=== PATIENT | female | born 1985 ===

== ENCOUNTER 2019-07-02 07:13 | Day surgery (SDC) | payer BC ==
[~2019-07-02 07:13] MED LIST: BUPIVACAINE/PF (0.5%) 5 MG/1 ML 30 ML VIAL INFILTRATI ONE; SODIUM CHLORIDE 0.9% IRR 1,000 ML BOTTLE IR ONE
--- NOTE | 2019-07-02 07:36 | Anesthesia Consultation ---
Anesthesia Consult and Med Hx Date of service: 07/02/19 - Airway Anesthetic Teeth Evaluation: Good ROM Head & Neck: Adequate Mental/Hyoid Distance: Adequate Mallampati Class: Class II Intubation Access Assessment: Good - Pulmonary Exam CTA: Yes - Cardiac Exam Cardiac Exam: RRR - Pre-Operative Health Status ASA Pre-Surgery Classification: ASA1 Proposed Anesthetic Plan: General
--- NOTE | 2019-07-02 07:37 | Anesthesia Day of Surgery ---
Anesthesia Day of Surgery - Day of Surgery Patient Examined: Yes Patient H&P Reviewed: Yes Patient is NPO: Yes
[2019-07-02] MEDS ORDERED: ONDANSETRON 4 MG/2 ML INJ IV PRN (07:38)
[2019-07-02] MEDS ORDERED: HYDROmorphone 1 MG/1 ML INJ IV PRN (07:38)
[2019-07-02] MEDS ORDERED: BACTERIOSTATIC SODIUM CHLORIDE 0.9% 30 ML VIAL INFILTRATI ONE (07:43)
[2019-07-02] MEDS ORDERED: MIDAZOLAM 2 MG/2 ML INJ IV NR (08:00)
[2019-07-02] MEDS ORDERED: LACTATED RINGERS 1,000 ML IV SCH (08:00)
[2019-07-02 08:34] VITALS: BP 124/67
[2019-07-02] MEDS ORDERED: BUPIVACAINE/PF (0.5%) 5 MG/1 ML 30 ML VIAL INFILTRATI ONE (08:47)
[2019-07-02] MEDS ORDERED: ROCURONIUM 50 MG/5 ML INJ IV ONE (08:52)
[2019-07-02] MEDS ORDERED: MIDAZOLAM 2 MG/2 ML INJ ONE (08:52)
[2019-07-02] MEDS ORDERED: fentaNYL 100 MCG/2 ML INJ ONE (08:52)
[2019-07-02] MEDS ORDERED: LIDOCAINE MPF (2%) 20 MG/1 ML VIAL 5 ML ONE (08:52)
[2019-07-02] MEDS ORDERED: PROPOFOL 200 MG/20 ML VIAL IV ONE (08:53)
== END 2019-07-02 10:03 | disposition home or self-care (01) ==
LOC: OR 07:13
PROVIDERS: ATTEND Obstetrics & Gynecology
DX: Z30.2 Encounter for sterilization (principal); Z53.8 Procedure and treatment not carried out for other reasons; Z79.899 Other long term (current) drug therapy; Z98.890 Other specified postprocedural states
CPT/HCPCS: J2250; J7120; J2704; J3010

== ENCOUNTER 2019-08-19 07:20 | Day surgery (SDC) | payer BC ==
[2019-08-19] MEDS ORDERED: GABAPENTIN 300 MG CAP PO NR (08:00)
[2019-08-19] MEDS ORDERED: LACTATED RINGERS 1,000 ML IV SCH (08:00)
[2019-08-19] MEDS ORDERED: CELECOXIB 200 MG CAP PO NR (08:00)
[2019-08-19] MEDS ORDERED: MIDAZOLAM 2 MG/2 ML INJ IV NR (08:00)
[2019-08-19] MEDS ORDERED: BUPIVACAINE/PF (0.5%) 5 MG/1 ML 30 ML VIAL INFILTRATI ONE ×3 (08:31→09:48)
[2019-08-19] MEDS ORDERED: BUPIVACAINE/PF (0.25%) 2.5 MG/ML 30 ML VIAL INFILTRATI ONE (08:32)
--- NOTE | 2019-08-19 08:39 | Anesthesia Day of Surgery ---
Anesthesia Day of Surgery - Day of Surgery Patient Examined: Yes Patient H&P Reviewed: Yes Patient is NPO: Yes
--- NOTE | 2019-08-19 08:39 | Anesthesia Consultation ---
Anesthesia Consult and Med Hx Date of service: 08/19/19 - Airway Anesthetic Teeth Evaluation: Good ROM Head & Neck: Adequate Mental/Hyoid Distance: Adequate Mallampati Class: Class I Intubation Access Assessment: Good - Pulmonary Exam CTA: Yes - Cardiac Exam Cardiac Exam: RRR - Pre-Operative Health Status ASA Pre-Surgery Classification: ASA1 Proposed Anesthetic Plan: General - Pulmonary Hx Smoking: No Hx Respiratory Symptoms: No - Cardiovascular System Hx Hypertension: No Hx Heart Attack/AMI: No - Central Nervous System CVA: No - Gastrointestinal Hx Gastroesophageal Reflux Disease: No - Endocrine Hx Renal Disease: No Hx Liver Disease: No Hx Insulin Dependent Diabetes: No Hx Non-Insulin Dependent Diabetes: No Hx Thyroid Disease: No - Other Systems Hx Obesity: Yes (BMI 36) - Additional Comments Anesthesia Medical History Comments: No hx anesthetic complications.
[2019-08-19] MEDS ORDERED: LIDOCAINE MPF (2%) 20 MG/1 ML VIAL 5 ML ONE (08:53)
[2019-08-19] MEDS ORDERED: ONDANSETRON 4 MG/2 ML INJ ONE (08:53)
[2019-08-19] MEDS ORDERED: dexAMETHasone 20 MG/5 ML VIAL ONE (08:53)
[2019-08-19] MEDS ORDERED: ROCURONIUM 50 MG/5 ML INJ IV ONE (08:53)
[2019-08-19] MEDS ORDERED: fentaNYL 100 MCG/2 ML INJ ONE ×2 (08:54→09:59)
[2019-08-19] MEDS ORDERED: PROPOFOL 200 MG/20 ML VIAL IV ONE (08:54)
[2019-08-19] MEDS ORDERED: SODIUM CHLORIDE 0.9% IRR 1,500 ML BOTTLE IR ONE (09:48)
[2019-08-19] MEDS ORDERED: GLYCOPYRROLATE 0.4 MG/2 ML INJ ONE (09:59)
[2019-08-19] MEDS ORDERED: NEOSTIGMINE 10MG/10 ML INJ MDV ONE (09:59)
[2019-08-19] MEDS: HYDROmorphone 1 MG/1 ML INJ IV PRN ×2 (10:34→10:44)
[2019-08-19] MEDS ORDERED: ACETAMINOPHEN W/CODEINE 300-30 MG TAB PO ONE (11:59)
[2019-08-19] MEDS ORDERED: ACETAMINOPHEN W/CODEINE 300-30 MG TAB ONE (12:04)
--- NOTE | 2019-08-19 14:13 | Post Anesthesia Evaluation ---
- Post Anesthesia Evaluation Patient Participated: Yes Airway Patent: Yes Stable Respiratory Function: Yes Nausea/Vomiting: No Temp > 96.8F: Yes Pain Manageable: Yes Adequeate Hydration: Yes Anesthesia Complications: No
[2019-08-19 16:07] VITALS: BP 149/85
--- NOTE | 2019-08-19 23:45 | Post Operative Note ---
Date of procedure: 08/19/19 Pre-op diagnosis: sterilization Post-op diagnosis: same Findings: Normal uterus, tubes and ovaries. Grossly normal general abd survey Procedure: Lap BTL with Filschie clips Patient was taken to the operating room and prepped and draped in usual fashion. Attention was first turned vaginally to the placement of the acorn uterine manipulator this difficulty. Single tooth tenaculum was used to stabilize the cervix. Then after the Uriarte was placed attention was turned abdominally. A 5 mm incision was made in the umbilicus. Veress needle successfully placed in the abdominal cavity and the abdomen was appropriately insufflated with CO2 gas. The Veress needle was removed and the 5 mm trocar was placed. Placement confirmed with the camera. The patient was then placed in Trendelenburg and 8 mm suprapubic incision was made about 2 cm superior to the pubic symphysis in the midline. The 8 millimeter trocar was then placed under direct visualization and was done successfully and without difficulty. Attention was then turned to the left fallopian tube where a Filshie clip was applied. It was applied successfully and without difficulty and encompassed the full width of the tube. Good hemostasis noted. Then attention was turned to the right side where the Filshie clip was applied to that tube and equal success was achieved. Full width of the tube was encompassed on that side as well. Good hemostasis noted o n that side as well. At this point the procedure was concluded. The abdomen was desufflated. Trochars were removed and trocar sites reapproximated with 4-0 Monocryl in a subcuticular fashion followed by Marcaine. The Uriarte and acorn uterine manipulator was removed. All instrument and lap counts were correct. Patient taken to the recovery room in stable condition. Anesthesia: KATA Surgeon: OG HERMAN Estimated blood loss: minimal Pathology: none Condition: stable Disposition: PACU
== END 2019-08-19 12:13 | disposition home or self-care (01) ==
LOC: OR 07:20
PROVIDERS: ATTEND Obstetrics & Gynecology
DX: Z30.2 Encounter for sterilization (principal); E66.9 Obesity, unspecified; Z79.899 Other long term (current) drug therapy; Z68.36 Body mass index [BMI] 36.0-36.9, adult; Z98.890 Other specified postprocedural states
CPT/HCPCS: 58671; 81025; J1100; J1170; J2250; J2405; J2704; J2710; J3010; J7120